=== PATIENT | male | born 1995 | race Caucasian/White ===

== ENCOUNTER 2019-01-15 03:36 | Inpatient (IN) | payer BC ==
[2019-01-15] VITALS (30 sets, daily range): BP systolic 83–194; BP diastolic 59–134
[~2019-01-15] VITALS: Ht 182.9 cm; Wt 93.1 kg
[2019-01-15] MEDS ORDERED: LEXAPRO 10 MG T10 M2 PO (03:41)
[2019-01-15] MEDS ORDERED: FISH OIL 1,001000 M2 PO (03:42)
--- NOTE | 2019-01-15 03:54 | NUR ---
talked with pt without mother in room, pt is not SI or HI has admitted to using adderall to increase alertness and stay awake time before, has not had this reaction before.
--- NOTE | 2019-01-15 03:55 | NUR ---
Mother frequently interrupts during assessment and information gathering. Pt is okay with her being in the room. Dr Casper talked with mother, aware of treatment
[2019-01-15 04:03] LABS: HEMATOCRIT 49.8 % (42.0-52.0); MCH 30.1 pg (26.0-34.0); MCHC 34.1 g/dL (28.0-37.0); MCV 88.2 fL (80.0-100.0); RBC 5.65 mil/uL (4.50-6.00); RDW 13.5 % (10.5-14.5); WBC 11.4 thou/uL (4.0-11.0)
[2019-01-15 04:05] LABS: URINE BILIRUBIN NEGATIVE (Negative); URINE BLOOD NEGATIVE (Negative); URINE CLARITY CLEAR; URINE COLOR YELLOW; URINE GLUCOSE-RANDOM* NEGATIVE (Negative); URINE KETONES 1+ (Negative); URINE LEUKOCYTES-REFLEX NEGATIVE (Negative); URINE NITRITE-REFLEX NEGATIVE (Negative); URINE PROTEIN (DIPSTICK) NEGATIVE (Negative); URINE SPECIFIC GRAVITY <= 1.005 (1.005-1.035); URINE UROBILINOGEN 0.2 E.U./dl (0.2-1.0)
[2019-01-15 04:07] LABS: ANION GAP 17 mmol/L (7-16); BUN 13 mg/dL (7-18); CALCIUM 10.5 mg/dL (8.5-10.1); CHLORIDE 99 mmol/L (98-107); CO2 22 mmol/L (21-32); CREATININE 1.2 mg/dL (0.7-1.3); GLUCOSE 133 mg/dL (74-106); POTASSIUM 3.5 mmol/L (3.5-5.1); SODIUM 138 mmol/L (136-145)
[2019-01-15 04:09] LABS: AMP/METHAMP POSITIVE (Negative); BARBITURATES Negative (Negative); BENZODIAZEPINES Negative (Negative); COCAINE Negative (Negative); METHADONE Negative (Negative); OPIATES Negative (Negative); PCP Negative (Negative)
[2019-01-15 04:14] LABS: SALICYLATE < 2.0 mg/dL (2.8-20.0)
--- NOTE | 2019-01-15 04:52 | NUR ---
PILLS PT HAD TAKEN TO PHARMACY. IDENTIFIED ADDERALL IR 30 MG 11 1/2 PILLS REMAIN, RECENTLY PURCHASED 30 PILLS. POWDER IN 2ND BOTTLE, REMAINING PILLS AND POWDER DESTROYED BY PHARMACY.
--- NOTE | 2019-01-15 06:23 | NUR ---
PATIENT ARRIVED TO THE UNIT FROM THE ED AT 0500. PATIENT IS AAOX4 AND SHOWS TO BE ST AND HYPERTENSIVE ON THE MONITOR. PATIENT IS 94% ON ROOM AIR. PATIENT ACCOMPANIED BY MOTHER AND SISTER. PATIENT EXPRESSES WISH TO GET HELP WITH GETTING OFF HIS ADDERALL ADDICTION. PATIENT IS CALM AND COORPERATIVE.
--- NOTE | 2019-01-15 11:58 | EKG ---
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: : 1995 Requested By: Evan Casper Order Number: [id number] MD: Osmin Trujillo Measurements Intervals [place] Rate: 103 P: 42 MT: 163 QRS: -19 QRSD: 93 T: 29 QT: 359 QTc: 470 Interpretive Statements Sinus tachycardia Borderline left axis deviation Borderline prolonged QT interval No previous ECG available for comparison Electronically Signed On 01-15-2019 11:58:36 CDT by Osmin Trujillo [email or web address] ��������������������������������������������� <ELECTRONICALLY SIGNED> ���������������������������������������� By: Osmin Trujillo MD, [facility] ��������������������������������������������� 01/15/19 1158 0410 0410 Osmin Trujillo MD, FACC /EPI
[2019-01-15 14:42] LABS: MAGNESIUM 1.7 mg/dL (1.8-2.4); PHOSPHORUS 2.7 mg/dL (2.5-4.9)
[2019-01-15 15:10] LABS: TSH 0.942 uIU/mL (0.358-3.740)
[2019-01-15 15:40] LABS: FOLIC ACID 32.5 ng/mL (8.6-58.9)
--- NOTE | 2019-01-15 17:12 | NUR ---
PATIENT IS LESS ANXIOUS AND RESTLESS THIS EVENING. BP ELEVATED WHEN FAMILY HERE AND HIS MOTHER IS REQUESTING THAT WE NOT GIVE ATIVAN. MONITOR IS SHOWING NSR AT THIS TIME. REASSURANCE GIVEN TO PATIENT AND FAMILY AND UPDATED TO THE POC.
[2019-01-15] MEDS ORDERED: CARDIZEM CD120 MG PO (18:43)
--- NOTE | 2019-01-15 19:45 | NUR ---
PATIENT DISCHARGED TO HOME WITH MOTHER, AMBULATED TO CAR WITHOUT INCIDENT. DISCHARGE INSTRUCTIONS AND WORK RELEASE REVIEWED WITH PATIENT. 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 PATIENT ALERT AND ORIENTED, CALM AND COOPERATIVE AND VERBALIZED UNDERSTANDING.
== END 2019-01-15 19:08 | disposition home or self-care (01) | DRG 918 ==
LOC: ER 03:36 → EROBS 04:39 → ICU 04:53
PROVIDERS: Emergency Medicine; ADMIT Internal Medicine
DX: T43.621A Poisoning by amphetamines, accidental (unintentional), initial encounter (principal); F33.3 Major depressive disorder, recurrent, severe with psychotic symptoms; F17.210 Nicotine dependence, cigarettes, uncomplicated; F12.90 Cannabis use, unspecified, uncomplicated; R00.0 Tachycardia, unspecified; F19.10 Other psychoactive substance abuse, uncomplicated; Z88.8 Allergy status to other drugs, medicaments and biological substances; Z71.41 Alcohol abuse counseling and surveillance of alcoholic; Z79.899 Other long term (current) drug therapy; Y92.89 Other specified places as the place of occurrence of the external cause
CPT/HCPCS: 10078